=== PATIENT | female | born 2000 | race Caucasian/White ===

== ENCOUNTER 2024-08-13 08:31 | Day surgery (SDC) | payer MEDICAID ==
[2024-08-13] VITALS (8 sets, daily range): BP systolic 100–135; BP diastolic 63–82; PULSE 85–104; RESP 14–20; O2SAT 98–100
[~2024-08-13] VITALS: Ht 182.9 cm; Wt 163.0 kg
[~2024-08-13 08:31] MED LIST: ALBUTEROL; ARIP10TA87 PO; ARIP960S; BUDE10.22 PO; HYDR-3686 PO; LEVO5TAB13; MONT-48 PO; ONDA-243 PO; SEMA1PEN5; SERT-433 PO
[2024-08-13] MEDS ORDERED: LIDOcaine 2% Viscous 15ml cup ONE (10:19)
[2024-08-13] MEDS ORDERED: fentaNYL/PF 50MCG/1 ML 2ML syringe ONE (10:27)
[2024-08-13] MEDS ORDERED: simethicone 40mg/0.6ml oral drops 30ml ONE (10:29)
[2024-08-13] MEDS ORDERED: MIDAZolam 1 MG/ML 5ML VIAL ONE (10:29)
== END 2024-08-13 11:25 | disposition home or self-care (01) ==
LOC: OR 08:31
PROVIDERS: ATTEND Internal Medicine Gastroenterology
DX: R13.10 Dysphagia, unspecified (principal); K31.89 Other diseases of stomach and duodenum
CPT/HCPCS: 43239; 99152; J2250; J3010; J7030; Z7512; A4620